=== PATIENT | female | born 1930 | race Caucasian/White ===

== ENCOUNTER 2017-11-21 08:23 | Emergency (ER) | payer MEDICARE, BC ==
[~2017-11-21] VITALS: Ht 154.9 cm; Wt 52.2 kg
[2017-11-21] MEDS ORDERED: OLANZAPINE (08:53)
[2017-11-21] MEDS ORDERED: XARELTO (08:53)
[2017-11-21] MEDS ORDERED: MOVANTIK (08:53)
[2017-11-21] MEDS ORDERED: OXYCODONE (08:53)
[2017-11-21] MEDS ORDERED: DOCUSATE (08:53)
[2017-11-21] MEDS ORDERED: GABAPENTIN (08:53)
[2017-11-21] MEDS ORDERED: DEXAMETHASONE (08:53)
[2017-11-21] MEDS ORDERED: POTASSIUM (08:53)
[2017-11-21] MEDS ORDERED: FURO20TA90 (08:53)
--- NOTE | 2017-11-21 08:53 | NUR ---
MEDICATION LIST OBTAINED FROM PT CAREGIVER'S IPHONE - NO DOSAGES SPECIFIED.
[2017-11-21] MEDS ORDERED: IV NORMAL SALINE 1000 ML BAG IV ONE (09:00)
[2017-11-21 09:31] LABS: CARBON DIOXIDE 29 mmol/L (21-32); CHLORIDE 104 mmol/L (98-107); CREATININE 0.8 mg/dL (0.6-1.3); GLUCOSE 155 mg/dL (74-106); POTASSIUM 3.9 mmol/L (3.5-5.1); UREA NITROGEN, BLOOD 18 mg/dL (7-18)
[2017-11-21 09:36] LABS: ALANINE AMINOTRANSFERASE 28 U/L (14-59); ALKALINE PHOSPHATASE 181 U/L (50-136); ASPARTATE AMINOTRANSFERASE 35 U/L (15-37); BILIRUBIN,DIRECT 0.2 mg/dL (0.0-0.2); BILIRUBIN,TOTAL 0.6 mg/dL (0.2-1.0); TOTAL PROTEIN, SERUM 5.7 g/dL (6.4-8.2)
[2017-11-21 09:43] LABS: BASOPHILS % (AUTO) 0.2 % (0.0-2.0); HEMOGLOBIN 11.5 g/dL (10.9-14.3); LYMPHOCYTES # (AUTO) 0.3 K/uL (20.0-40.0); LYMPHOCYTES % (AUTO) 2.9 % (20.5-51.5); MEAN CORPUSCULAR HEMOGLOBIN 29.4 uug (24.7-32.8); MEAN CORPUSCULAR HGB CONC 33 g/dL (32.3-35.6); MEAN CORPUSCULAR VOLUME 89.4 fL (75.5-95.3); MONOCYTES # (AUTO) 0.4 K/uL (2.0-10.0); MONOCYTES % (AUTO) 4.2 % (0.0-11.0); NEUTROPHILS # (AUTO) 9.6 K/uL (1.8-8.9); NEUTROPHILS % (AUTO) 92.7 % (38.5-71.5); PLATELET COUNT (AUTO) 224 K/uL (179-408); RED BLOOD CELL COUNT(AUTO) 3.92 MIL/uL (3.63-4.92); WHITE BLOOD COUNT (AUTO) 10.4 K/uL (3.8-11.8)
[2017-11-21] MEDS ORDERED: IOHEXOL 300MG/ML 100 ML INFUS..BTL ONE (09:46)
--- NOTE | 2017-11-21 09:46 | NUR ---
Gabrielle-anal care done,+foul-smelling,semi-loose stool noted. Stool sample sent to lab, pending results@this time. Safety & comfort measures maintained.
[2017-11-21 09:56] LABS: *BLOOD, URINE NEGATIVE (NEGATIVE); *COLOR,URINE Brown (YELLOW); *KETONES,URINE TRACE (NEGATIVE); *PROTEIN,URINE NEGATIVE (NEGATIVE); LEUKOCYTE ESTERASE ,URINE NEGATIVE (NEGATIVE); NITRITE, URINE NEGATIVE (NEGATIVE); PH,URINE 5.5 (5.0-8.0); UGLUCOSE NEGATIVE (NEGATIVE)
[2017-11-21 10:07] LABS: *BILIRUBIN,URIN 1+ (NEGATIVE); *CLARITY,URINE HAZY (CLEAR)
[2017-11-21 10:08] LABS: BACTERIA,URINE MANY /HPF (NONE SEEN); RBC,URINE 0-3 /HPF (0-3); SQUAMOUS EPITHELIAL CELL,UR FEW /HPF (NONE SEEN)
[2017-11-21 10:10] LABS: TRANSITIONAL EPI CELLS,URINE FEW /LPF (NONE SEEN)
[2017-11-21 10:11] LABS: MUCUS,URINE FEW /LPF (0-FEW)
--- NOTE | 2017-11-21 10:40 | NUR ---
Patient is back from CT scan in same condition, pending results & disposition
--- NOTE | 2017-11-21 10:47 | NUR ---
MD is at bedside & updated the daughter.
--- NOTE | 2017-11-21 12:23 | NUR ---
Patient is resting comfortably on gurney with eyes closed, all results are in, pending disposition
[2017-11-21] MEDS ORDERED: CIPROFLOXACIN IV 400 MG in PREMIXED 1 EACH IV SCH (12:45)
[2017-11-21] MEDS ORDERED: METRONIDAZOLE 500 MG/NS 100 ML PIGGYBACK IV ONE (12:45)
[2017-11-21] MEDS ORDERED: METRONIDAZOLE 500 MG/NS 100ML 100 ML IV ONE (12:56)
--- NOTE | 2017-11-21 13:07 | NUR ---
1242- Per Aubree (the [facility] Transfer [facility] staff), "...this patient is accepted by oncologist Dr Dirk Palmer." Pending available assigned bed & nurse at this time
--- NOTE | 2017-11-21 13:55 | NUR ---
Recieved call from [facility] transfer center, pt will be going to [facility], room 4520. transpot will be arranged by Clementina.
--- NOTE | 2017-11-21 13:58 | NUR ---
NOEMI CALLED TICKET NUMBER [id number] [facility] TRANSPORT TO [facility] AVAILABLE SHEET FINISHER TIME 1530.
--- NOTE | 2017-11-21 16:14 | NUR ---
Per-anal care provided again with scant foul-smelling loose brown stool noted. Hands off report given to offline editor Thien of [facility] ALS unit.
--- NOTE | 2017-11-21 16:15 | NUR ---
Patient Tranfers to outside Facility: [facility] Physician: Dirk Palmer Location: [facility] room 4532 bed 02 RN: Evan truck loader [facility] staff: Thien
== END 2017-11-21 16:22 | disposition short-term general hospital (02) ==
LOC: ER 08:23
DX: K52.9 Noninfective gastroenteritis and colitis, unspecified (principal); R41.82 Altered mental status, unspecified; R53.1 Weakness; C25.9 Malignant neoplasm of pancreas, unspecified; Z90.49 Acquired absence of other specified parts of digestive tract; Z88.5 Allergy status to narcotic agent; Z79.891 Long term (current) use of opiate analgesic; Z79.01 Long term (current) use of anticoagulants; Z79.899 Other long term (current) drug therapy; Z86.73 Personal history of transient ischemic attack (TIA), and cerebral infarction without residual deficits
CPT/HCPCS: 36415; 70030-TC; 71045; 83605; 85025; 85730; 87040; 87077; 87086; 87400; 93005; A4663; J0744; J3490; J7030; J7040; Q9967